=== PATIENT | male | born 1980 | race Caucasian/White ===

== ENCOUNTER → 2016-11-05 | Outpatient (CLI) | payer OTHER ==
[~2016-11-05] MED LIST: FLEXERIL10 MG PO; HYDROCODONE BIT1 T11 PO; NAPROSYN500 MG PO; NKHM PO; PREDNICOT20 MG PO
== END | disposition home or self-care (01) ==
LOC: CT 10-26 09:00
DX: J84.10 Pulmonary fibrosis, unspecified (principal); R91.1 Solitary pulmonary nodule; Z87.891 Personal history of nicotine dependence

== ENCOUNTER → 2018-03-24 | Outpatient (CLI) | payer BC ==
[2018-03-24 08:09] LABS: BASO # 0.1 10*3/uL (0.0-0.1); BASO % 0.6 % (0.0-1.0); EOS # 0.5 10*3/uL (0.0-0.4); EOS % 2.9 % (1.0-4.0); HEMATOCRIT 50.2 % (42.0-52.0); HEMOGLOBIN 15.9 g/dl (14.0-18.0); LYMPH # 4.7 10*3/uL (1.3-4.4); LYMPH % 28.9 % (27.0-41.0); MEAN CELL VOLUME 91.4 fl (80.0-94.0); MEAN CORPUSCULAR HGB CONC 31.7 g/dl (33.0-37.0); MEAN PLATELET VOLUME 11.3 fl (9.6-12.3); MONO # 1.1 10*3/uL (0.1-1.0); MONO % 6.6 % (3.0-9.0); NEUT # 9.7 10*3/uL (2.3-7.9); NEUT % 60.4 % (47.0-73.0); PLATELET COUNT AUTOMATED 279 10*3/uL (130-400); RED BLOOD COUNT 5.49 10*6/uL (4.50-5.90); RED CELL DISTRI WIDTH 13.2 % (0-14.5); WHITE BLOOD COUNT 16.1 10*3/uL (4.8-10.8)
[2018-03-25 06:08] LABS: HEPATITIS B SURFACE AG Negative (Negative); HEPATITIS C VIRUS ANTIBODY <0.1 s/co (0.0-0.9)
== END | disposition home or self-care (01) ==
LOC: US 07:30 → LAB 07:31
PROVIDERS: Nurse Practitioner Family
DX: E78.4 Other hyperlipidemia (principal); J40 Bronchitis, not specified as acute or chronic; R06.2 Wheezing; I10 Essential (primary) hypertension; R94.5 Abnormal results of liver function studies; R73.01 Impaired fasting glucose; E66.9 Obesity, unspecified; R10.13 Epigastric pain; J30.9 Allergic rhinitis, unspecified; D72.829 Elevated white blood cell count, unspecified; E83.51 Hypocalcemia; F17.210 Nicotine dependence, cigarettes, uncomplicated